=== PATIENT | female | born 1965 | race Caucasian/White ===

== ENCOUNTER → 2023-04-11 15:29 | Outpatient (REF) | payer OTHER, SELFPAY | LOC: RAD 15:29 | PROVIDERS: ATTENDING PHYSICIAN Optometrist; FAMILY PHYSICIAN Internal Medicine | DX: H34.232 Retinal artery branch occlusion, left eye (principal) | CPT/HCPCS: 93880 ==

== ENCOUNTER → 2025-01-13 09:09 | Outpatient (REF) | payer OTHER, SELFPAY | LOC: REG 09:09 | PROVIDERS: ATTENDING PHYSICIAN Nurse Practitioner Family | DX: M25.562 Pain in left knee (principal) | CPT/HCPCS: 73564 ==